=== PATIENT | male | born 1965 | race Hispanic/Latino ===

== ENCOUNTER 2023-10-24 20:58 | Emergency (ER) | payer OTHER ==
[2023-10-24] MEDS ORDERED: Oxymetazoline HCl 0.05% ( 15 ML ) ONE (21:31)
[2023-10-24] MEDS ORDERED: Morphine 4 MG/ML VIAL ONE (22:25)
[2023-10-24] MEDS ORDERED: Ampicillin/Sulbactam 3 GM in Sodium Chloride 0.9% 100 ML IVPB ONE (22:30)
== END 2023-10-24 23:59 ==
LOC: CSHERS 20:58
DX: S02.92XA Unspecified fracture of facial bones, initial encounter for closed fracture (principal); W01.0XXA Fall on same level from slipping, tripping and stumbling without subsequent striking against object, initial encounter; Y92.89 Other specified places as the place of occurrence of the external cause
CPT/HCPCS: 70450; 70486; 72125; 96365; 96375; J0295; J2270; J3490